=== PATIENT | female | born 1970 | race Caucasian/White ===

== ENCOUNTER 2019-08-23 16:50 | Emergency (ER) | payer MEDICAID, SELFPAY ==
--- NOTE | ~2019-08-23 | XR_ITS ---
EXAMINATION: XR chest 2V DATE: 08/23/2019 17:21 INDICATION: Chest pain. TECHNIQUE: Frontal and lateral views of the chest were obtained. COMPARISON: CT abdomen and pelvis 12/12/2013 FINDINGS: The chest demonstrates clear lungs without pneumonia, pleural effusion, or pneumothorax. Th e heart size is normal. IMPRESSION: 1. No acute cardiopulmonary disease. Reviewed, dictated and finalized at location A.
--- NOTE | ~2019-08-23 | CT_ITS ---
EXAMINATION: CT brain wo con DATE: 08/23/2019 17:17 INDICATION: Dizziness TECHNIQUE: Computed tomography (CT) of the head was performed without intravenous contrast. The mA wa s adjusted according to patient size. Iterative reconstruction technique was employed. Exam dose: 68 1.00 mGy-cm total exam DLP. COMPARISON: None FINDINGS: No intracranial mass lesion or hemorrhage or cerebrovascular accident. No midline shift or mass effect. Normal ventricular size. No subdural or epidural hematoma. No fracture or bone destr uction. IMPRESSION: Negative Reviewed, dictated and finalized at Location A. Reviewed, dictated and finalized at location A. IMPRESSION: Negative
--- NOTE | 2019-08-23 16:56 | ECG_ITS ---
Measurements Intervals [place] Rate: 87 P: 58 ID: [id number] QRS: 6 QRSD: 77 T: 33 QT: 337 QTc: 406 Interpretive Statements SINUS RHYTHM BASELINE ARTIFACT- I, III NORMAL ECG Electronically Signed On 08-23-2019 20:18:53 CDT by Viet Wallace D.O.
[2019-08-23 17:08] VITALS: BP 125/83; PULSE 117; RESP 18; TEMP 36.6; O2SAT 97
[2019-08-23 17:27] LABS: Basophils Percent Auto 0.3 % (0.2-1.2); Eosinophils Absolute Auto 0.3 K/mm3 (0-0.3); Eosinophils Percent Auto 2.7 % (0-4.4); Hematocrit 42.4 % (37.0-47.0); Hemoglobin 14.1 g/dL (12.0-15.0); Immature Granulocyte Absolute 0.04 K/mm3 (0.00-0.031); Immature Granulocyte Percent A 0.4 % (0-0.5); Lymphocytes Absolute Auto 3.87 K/mm3 (0.9-3.2); Lymphocytes Percent Auto 36.1 % (18.3-44.2); Mean Corpuscular HGB Conc 33.3 g/dl (32-36); Mean Corpuscular Hemoglobin 30.5 pg (26-34); Mean Corpuscular Volume 91.8 fl (80-100); Mean Platelet Volume 10.3 fl (7.4-10.4); Monocytes Absolute Auto 0.6 K/mm3 (0.1-0.6); Monocytes Percent Auto 5.7 % (2.6-8.5); Neutrophils Absolute Auto 5.9 K/mm3 (1.3-6.7); Neutrophils Percent Auto 54.8 % (45.5-73.1); Platelet Count Result 460 k/mm3 (150-375); Red Blood Count 4.62 M/mm3 (4.2-5.4); Red Cell Distribution Width 12.9 % (11.5-14.5); White Blood Count 10.7 K/mm3 (4.5-10.0)
[2019-08-23 17:37] LABS: INR 0.9; Partial Thromboplastin Time 29.5 SECONDS (22.3-36.8); Prothrombin Time 11.8 Seconds (11.1-14.7)
[2019-08-23 17:39] LABS: Blood Urea Nitrogen 14 mg/dL (7-17); Calcium 9.3 mg/dL (8.4-10.2); Carbon Dioxide 23 mmol/L (22-30); Chloride 107 mmol/L (98-107); Estimated CRCL calculation 106 ml/min; Estimated Glomerular Filt Rate > 60; Glucose 101 mg/dL (65-105); Potassium 4.1 mmol/L (3.4-5.0); Sodium 135 mmol/L (137-145)
[2019-08-23 17:51] LABS: Troponin I < 0.012 ng/mL (0.000-0.034)
--- NOTE | 2019-08-23 20:27 | PC.NURSE ---
patient reported to this nruse that she was leaving ed.
== END 2019-08-23 20:27 | disposition left against medical advice (07) ==
PROVIDERS: Emergency Provider Emergency Medicine
DX: R42 Dizziness and giddiness (principal); R07.9 Chest pain, unspecified
CPT/HCPCS: 36415; 70450; 71046; 80048; 84484; 85025; 85610; 85730; 93005; 99199

== ENCOUNTER 2020-01-25 17:01 | Outpatient (CLI) | payer OTHER, SELFPAY ==
--- NOTE | ~2020-01-25 | XR_ITS ---
EXAMINATION: XR forearm LT 2V EXAM DATE: 01/25/2020 17:30 INDICATION: Pain in Left arm, proximal forearm pain, no acute injury. TECHNIQUE: Left forearm frontal and lateral projections obtained and reviewed. There is no prior yolande dy for comparison. FINDINGS: There are no acute left forearm fractures or dislocations identified. There is no subcutan eous gas. The soft tissue is unremarkable. There are no radiopaque foreign bodies. IMPRESSION: 1. Unremarkable left forearm exam. Reviewed, dictated and finalized at location A. E UNLOADER
[2020-01-25 18:12] LABS: Cholesterol 226 mg/dL (0-200); HDL Direct 59 mg/dL; Triglycerides 163 mg/dL (<150)
[2020-01-25 18:23] LABS: LDL Cholesterol Direct 133 mg/dL
== END 2020-01-25 17:02 | disposition home or self-care (01) ==
PROVIDERS: PCP Nurse Practitioner Family; Visit Provider Nurse Practitioner Family
DX: M79.602 Pain in left arm (principal); E78.5 Hyperlipidemia, unspecified
CPT/HCPCS: 36415; 73090; 80061

== ENCOUNTER 2020-02-03 09:00 | Outpatient (RCR) | payer OTHER, SELFPAY ==
[2019-12-08 08:16] VITALS: BP_SYST 180
--- NOTE | 2019-12-08 09:10 | PTOPEVAL ---
Thank you for referring Carine Garnica to [facility].? The patient is scheduled to be seen for therapy? 2 x/week for 8 weeks. Please review, sign, date and return this plan of care NATE. I agree with and certify that the following plan of care is medically necessary. Referring Physician Date Referring Provider: Dr. Conrad Ford MD *PT Outpatient Evaluation Start: 12/08/19 08:14 Freq: Status: Active Protocol: Document 12/08/19 08:16 DUGLAS (Rec: 12/08/19 09:00 DUGLAS [id number]) Therapy Assessment Status Assessment Status Assessment Status Evaluation Outpatient Past Medical History Past Medical History Source of Past Medical History Patient,Recalled from Previous Visit, Confirmed with Patient /Family Other Source of Past Medical History poor historian for her medical history Neurological History Hx Neurological Disorders No Significant History Cardiovascular History Hx Hypercholesterolemia Yes Respiratory History Hx Asthma Yes Musculoskeletal History Hx Other Musculoskeletal Disorders Yes: broderick hand numbness Endocrine History Hx Other Endocrine Disorders Yes: hypoglycemia Evaluation Information Problem Diagnosis left shoulder pain Onset 1 month Additional Evaluation Detail She fell when she was 29 and was seen by a chiropractor, but then had broderick hand numbness. She has received therapy for right shoulder a few years ago due to RTC. tear. 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 She has to Family perform lifting and carrying at work. She reports increased pain and difficulty with lifting, reaching task, reaching and ADL's. She has trouble sleeping due to the pain. She does not have time due to work to perform any exercises. Reports increased pain with any movement of left shoulder. She reports numbness and tingling from shoulder into hand region that remains the same regardless of activity. Pain Assessment Timing of Pain Assessment Timing of Pain Assessment Assessment Pain Scale Pain Scale Used Numeric (1 - 10) Self Report Pain Assessment
--- NOTE | 2019-12-23 09:18 | PCPTNOTE ---
Patient called & cancelled scheduled appointment this date due to having to work.
--- NOTE | 2020-02-03 09:19 | PTOPEVAL ---
Thank you for referring Carine Garnica to [facility].? Pt has been seen for 9 therapy visits to address UE limitations. She has reached maximal potential with skilled therapy services at this time. Will DC Carine for skilled therapy at this time with pt to cont with her HEP. Please review, sign, date and return this plan of care NATE. I agree with and certify that the following plan of care is medically necessary. Referring Physician Date Admitting Provider: Attending Provider: PHYSICIAN NOT ON STAFF Referring Provider: *PT Outpatient Evaluation Start: 12/08/19 08:14 Freq: Status: Active Protocol: Document 02/03/20 08:43 DUGLAS (Rec: 02/03/20 09:16 CAP [id number]) Therapy Assessment Status Assessment Status Assessment Status Re-evaluation/Discharge Note Evaluation Information Problem Diagnosis left shoulder pain Onset 1 month Additional Evaluation Detail She fell when she was 29 and was seen by a chiropractor, but then had broderick hand numbness. She has received therapy for right shoulder a few years ago due to RTC. tear. Subjective Information She reports improved UE Query Text:As Reported By Patient/ symptoms with decreased Family shoulder pain. She is delegating some of the heavier chores at work to decrease the stress on the UE's. She is more aware of her technique with lifting and carrying with improved symptoms. She has changed her technique with forceful UE act at work with improved pain. She cont to have trouble sleeping due to the pain. She had increased pain of 10/10 when attempting to sleep. During a normal work week her pain will range from 0/10 to 7 /10. She is performing her HEP daily. She c/o have numbness and tingling into hand region that remains the same regardless of activity. Denies feeling in the last 2 fingers of both hands that has been present for years. Pain Assessment Timing of
== END 2020-02-03 09:56 | disposition home or self-care (01) ==
LOC: ANHPT 09:00
DX: M25.512 Pain in left shoulder (principal)
CPT/HCPCS: 97035; 97110; 97140; 97162

== ENCOUNTER 2020-03-20 00:49 | Emergency (ER) | payer OTHER, SELFPAY ==
--- NOTE | ~2020-03-20 | XR_ITS ---
EXAMINATION: XR elbow RT min 3V DATE: 03/20/2020 01:53 INDICATION: Right elbow pain. TECHNIQUE: 4 views of right elbow were obtained. COMPARISON: None. FINDINGS: Bone alignment is normal. No fracture. There is mild elbow joint osteoarthritis characteriz ed by tiny marginal osteophytes. No elbow joint effusion. There is mild soft tissue swelling overlyin g the olecranon. IMPRESSION: 1. Mild right elbow joint osteoarthritis. Reviewed, dictated and finalized at location A. ATTENDANT
[2020-03-20 00:50] VITALS: BP 123/91; PULSE 84; RESP 18; TEMP 36; O2SAT 100
[2020-03-20 02:02] VITALS: BP 119/78; PULSE 80; RESP 18; O2SAT 100
--- NOTE | 2020-03-20 02:02 | ED.UPPEXIN ---
HPI - Extremity Injury (Upper) General Chief Complaint: Extremity Injury, Upper Stated Complaint: right elbow pain Time Seen by Provider: 03/20/20 01:03 History of Present Illness HPI narrative: Patient is a 50-year-old female who presents ER with right elbow pain. Was using the rocker pizza cutter at [facility] when she had sudden onset pain in her right elbow with a pop. Seems to be over her radial head. It is worsened with repeated motion throughout the day. No numbness or tingling. Most comfortable when holding her hand across her chest. Related Data Home Medications Medication Instructions Recorded Confirmed ergocalciferol (vitamin D2) 03/20/20 03/20/20 loratadine mg 03/20/20 montelukast mg 03/20/20 simvastatin mg 03/20/20 Allergies Allergy/AdvReac Type Severity Reaction Status Date / Time No Known Allergies Allergy Verified 03/20/20 00:56 Review of Systems Musculoskeletal: Musculoskeletal: Reports arthralgias, Denies joint swelling and Denies muscle cramps Neurologic: Denies focal weakness and Denies numbness PMFSH Past Medical History Medical History (Updated 03/20/20 @ 02:05 by Kiel Fuentes MD) Healthy female adult Surgical History Surgical History (Updated 03/20/20 @ 02:03 by Kiel Fuentes MD) No history of previous surgery Social History Social History (Updated 03/20/20 @ 02:03 by Kiel Fuentes MD) Smoking status: Never smoker Gender identity (if verbalized by the patient): Female Exam Narrative: Exam Narrative: GENERAL: Well-appearing, well-nourished, and in no acute distress. HEAD: Normocephalic, atraumatic. HEART: Regular rate and rhythm. Normal peripheral pulses. EXTREMITIES: Normal range of motion. Tender palpation of the right radial head. Pronation supination intact. No swelling. SKIN: Warm, dry, no rash. NEURO: Alert and oriented x3. PSYCH: Normal mood and affect. Course Course Emergency Course: Unremarkable x-ray. Discharge home with sling for comfort. Continue take Tylenol and ibuprofen as needed for pain. Vital Signs Vital signs: Vital Signs Temperature 96.8 F L 03/20/20 00:50 Pulse Rate 84 03/20/20 00:50 Respiratory Rate 18 02/08/21 00:50 Blood Pressure 123/91 H 03/20/20 00:50 Pulse Oximetry 100 03/20/20 00:50 Temperature 96.8 F L 03/20/20 00:50 Pulse Rate 84 03/20/20 00:50 Respiratory Rate 18 03/20/20 00:50 Blood Pressure 123/91 H 03/20/20 00:50 Pulse Oximetry 100 03/20/20 00:50 MDM - Extremity Injury (Upper) Imaging Data My impression: X-ray right elbow: Negative for acute process. Discharge Plan Discharge Clinical Impression: Radial head subluxation Patient Disposition: Home, Self-Care Condition: Stable Instructions: How to Use a Sling (ED), Elbow Sprain (ED) Additional Instructions: Return to the ER if you suffer new injury, you have chest pain or shortness of breath, you have a cold/numb arm, you have additional concerns. Use your sling for comfort. Make sure to take your arm out at least 3 times a day and perform range of motion exercises of the elbow and shoulder see do not become increasingly stiff. Prescriptions: No Action simvastatin 20 mg tablet RF: 0 montelukast 10 mg tablet RF: 0 ergocalciferol (vitamin D2) 1,250 mcg (50,000 unit) capsule RF: 0 loratadine 10 mg tablet RF: 0 Follow-up/Referrals: Sita,Maria E Hernandez CLINICAL SYSTEMS EDUCATOR-BC [Primary Care Provider] - 1 Week
[2020-03-20 02:19] VITALS: BP 116/89; PULSE 79; RESP 16; O2SAT 99
== END 2020-03-20 02:23 | disposition home or self-care (01) ==
PROVIDERS: Emergency Provider Emergency Medicine; PCP Nurse Practitioner Family
DX: S53.001A Unspecified subluxation of right radial head, initial encounter (principal); X50.9XXA Other and unspecified overexertion or strenuous movements or postures, initial encounter
CPT/HCPCS: 73080; 99283; A4565

== ENCOUNTER 2020-03-27 08:46 | Outpatient (CLI) | payer OTHER, SELFPAY ==
--- NOTE | ~2020-03-27 | MR_ITS ---
EXAMINATION: MR shoulder LT wo con DATE: 03/27/2020 10:19 INDICATION: Left shoulder pain TECHNIQUE: Magnetic resonance imaging (MRI) of the left shoulder was performed without intravenous co ntrast. Sequences included axial PD-weighted FS FSE, coronal oblique PD-weighted FS FSE, coronal obli que T2-weighted FS FSE, sagittal PD-weighted FS FSE, and sagittal T1-weighted SE. COMPARISON: None. FINDINGS: Coracoacromial arch: The acromion undersurface is curved in morphology (type II). The coracoacromial ligament is normal. M inimal acromioclavicular osteoarthritis. Rotator cuff: Mild to moderate supraspinatus and infraspinatus tendinopathy. Full-thickness tear beginning approxim ately 1 cm from the footplate and extending 1 cm medial collateral and 6 mm AP. There is a partial-th ickness articular sided component which extends further distally to the footplate. There is also an a dditional 2 cm medial extension of a partial-thickness bursal sided component. The teres minor tendon is normal. Minimal subscapularis tendinopathy without discrete tear. Normal rotator cuff muscle bulk and signal. Biceps tendon, glenoid labrum and glenohumeral cartilage: Long head of the biceps tendon is normal. Is a tear at the superior glenoid labrum which extends from the 12:30 position anteriorly to the 11:00 position posteriorly. There is partial thickness cartilag e loss without degenerative subchondral changes along the anterior third of the glenoid and at the ap ex of the humeral head. Fluid: Small glenohumeral joint effusion which communicates with a small amount of fluid in the subacromial/ subdeltoid bursa to the full-thickness rotator cuff tear. Proportional extension of a small amount of fluid into the long head biceps tendon sheath. No loose osteochondral bodies. Bones: Normal marrow signal with no edema, fracture or abnormal marrow replacing process. Mild cystic change at the middle facet of the greater tuberosity likely related to chronic rotator cuff disease. IMPRESSION: 1. Mild to moderate supraspinatus and infraspinatus tendinopathy with small full-thickness supraspina tus tendon tear. 2. Mild glenohumeral osteoarthritis with superior, anterior to posterior tear of the glenoid labrum ( SLAP tear). Reviewed, dictated and finalized at location A. T ATTENDANT IMPRESSION: 1. Mild to moderate supraspinatus and infraspinatus tendinopathy with small ful l-thickness supraspinatus tendon tear. 2. Mild glenohumeral osteoarthritis with superior, anterior to posterior tear o f the glenoid labrum (SLAP tear).
== END 2020-03-27 08:47 | disposition home or self-care (01) ==
PROVIDERS: PCP Nurse Practitioner Family; Visit Provider Orthopaedic Surgery Hand Surgery
DX: M19.012 Primary osteoarthritis, left shoulder (principal)
CPT/HCPCS: 73221

== ENCOUNTER 2021-02-12 11:24 | Emergency (ER) | payer OTHER, SELFPAY ==
[2021-02-12 12:20] VITALS: BP 108/74; PULSE 86; RESP 18; TEMP 36.9; O2SAT 99
--- NOTE | 2021-02-12 13:35 | ED.NAVMDI ---
HPI - Nausea/Vomiting/Diarrhea General Chief complaint: Nausea/Vomiting/Diarrhea Stated complaint: low energy,diarrhea Time Seen by Provider: 02/12/21 13:24 Source: patient and RN notes reviewed Mode of arrival: ambulatory Limitations: no limitations History of Present Illness HPI Narrative: Patient presents today complaining of watery diarrhea, headache, nausea, and fever of 102 since last night. Patient reports multiple episodes of diarrhea that she cannot count. She has been able to keep down some water. Denies any upper respiratory symptoms. She has been taking ibuprofen for her fever with relief. Denies suspicious food intake. Denies abdominal pain. No one else in her household is sick. MD elicited complaint: nausea and diarrhea Related Data Home Medications Medication Instructions Recorded Confirmed ergocalciferol (vitamin D2) 1,250 mcg WEEKLY 02/12/21 02/12/21 [Vitamin D2] simvastatin 20 mg DAILY 02/12/21 02/12/21 topiramate [Topamax] 50 mg BID 02/12/21 02/12/21 Allergies Allergy/AdvReac Type Severity Reaction Status Date / Time No Known Allergies Allergy Verified 02/12/21 13:11 Review of Systems Review of Systems: CONSTITUTIONAL: Denies chills, or sweats.+ Fever, body aches EYES: Denies visual changes, redness, or discharge. ENT: Denies rhinorrhea, congestion, sore throat, or otalgia. CARDIOVASCULAR: Denies chest pain, palpitations, or edema. RESPIRATORY: Denies cough or dyspnea. GASTROINTESTINAL: Denies abdominal pain, vomiting. + Nausea, diarrhea GENITOURINARY: Denies dysuria or hematuria. SKIN: Denies rash, itching, or wounds. MUSCULOSKELETAL: Denies back pain, joint pain, or myalgia. NEUROLOGIC: Denies numbness, tingling, or weakness.+ Headache PSYCH: Denies depression or anxiety. [facility] Past Medical History Medical History Healthy female adult Surgical History Surgical History No history of previous surgery Social History Social History Smoking status: Never smoker Gender identity (if verbalized by the patient): Female Comments At time of signature, I have reviewed and agree with nursing past medical, surgical, social and family history unless otherwise noted. Please see nursing chart for further information. There is no relevant family history pertinent to the presenting complaint Exam Narrative: GENERAL: Well-appearing, well-nourished, and in no acute distress. HEAD: Normocephalic, atraumatic. EYES: EOMI. No redness or drainage. Conjunctivae normal. ENT: Mucous membranes pink and moist. Throat normal. Uvula midline. NECK: Normal AROM. Supple. No lymphadenopathy. CHEST: No respiratory distress. Clear to auscultation. HEART: Regular rate and rhythm. No murmur appreciated. Normal peripheral pulses. ABDOMEN: Soft, nontender, nondistended, hyper active bowel sounds. MUSCULOSKELETAL: No bony tenderness. EXTREMITIES: Normal range of motion. No edema. SKIN: Warm, dry, no rash. Capillary refill normal. Normal skin turgor. NEURO: No focal deficits. Alert and oriented x3. Gait steady. PSYCH: Normal affect. No signs of depression or anxiety. Course Course Level of Care: Express Care Visit Vital Signs Vital signs: Vital Signs Temperature 98.4 F 02/12/21 12:20 Pulse Rate 86 02/12/21 12:20 Respiratory Rate 18 02/12/21 12:20 Blood Pressure 108/74 02/12/21 12:20 Pulse Oximetry 99 02/12/21 12:20 Temperature 98.4 F 02/12/21 12:20 Pulse Rate 86 02/12/21 12:20 Respiratory Rate 18 02/12/21 12:20 Blood Pressure 108/74 02/12/21 12:20 Pulse Oximetry 99 02/12/21 12:20 Reviewed MDM - Nausea/Vomiting/Diarrhea Differential Diagnosis Differential diagnosis: Likely food poisoning, gastroenteritis and dehydration Lab Data Attestation: I reviewed the patient's lab results
== END 2021-02-12 13:50 | disposition home or self-care (01) ==
PROVIDERS: Emergency Provider Nurse Practitioner; PCP Nurse Practitioner Family
DX: R19.7 Diarrhea, unspecified (principal); Z20.822 Contact with and (suspected) exposure to COVID-19
CPT/HCPCS: 87804; 99213; G0463

== ENCOUNTER → 2021-02-14 07:54 | Outpatient (CLI) | payer OTHER, SELFPAY ==
[2021-02-15 14:36] LABS: SARS-CoV-2 RNA PCR Positive
== END ==
PROVIDERS: PCP Nurse Practitioner Family; Visit Provider Nurse Practitioner
DX: U07.1 COVID-19 (principal)
CPT/HCPCS: C9803; U0003; U0005

== ENCOUNTER 2023-01-31 14:10 | Emergency (ER) | payer OTHER, SELFPAY ==
[2023-01-31 15:17] VITALS: BP 110/81; PULSE 76; RESP 18; TEMP 36.4; O2SAT 100
--- NOTE | 2023-01-31 15:31 | ED.URI ---
HPI - URI/Sore Throat General Chief Complaint: Upper Respiratory Infection Stated Complaint: covid symptoms Time Seen by Provider: 01/31/23 15:25 Source: patient Mode of arrival: ambulatory Limitations: no limitations History of Present Illness HPI Narrative: Marcella is a 53-year-old female patient presenting to the clinic today with complaints of cough and runny nose. She reports that her symptoms have improved greatly. Symptoms started mid day on Friday. Has completed COVID test every day and they have all been positive. Reports that her employer recommend she come in to be evaluated. MD elicited complaint: cough and nasal congestion Related Data Home Medications Medication Instructions Recorded Confirmed ergocalciferol (vitamin D2) 1,250 1,250 mcg WEEKLY 02/12/21 01/31/23 mcg (50,000 unit) capsule (Vitamin D2) simvastatin 20 mg tablet 20 mg DAILY 02/12/21 01/31/23 topiramate 50 mg tablet (Topamax) 50 mg PRN PRN migraines 02/12/21 01/31/23 loratadine 10 mg tablet 10 mg PO DAILY 12/18/21 01/31/23 montelukast 10 mg tablet 10 mg PO DAILY 12/18/21 01/31/23 omeprazole 20 mg capsule,delayed 20 mg PO DAILY 12/18/21 01/31/23 release vitamin B complex (B 1 tablet PO DAILY 12/18/21 01/31/23 Complex-Vitamin B12 tablet) Allergies Allergy/AdvReac Type Severity Reaction Status Date / Time No Known Allergies Allergy Verified 01/31/23 15:44 Review of Systems Review of Systems: Pertinent positives per HPI. Patient denies any fever, chills, rash, headache, visual changes, dizziness, shortness of breath, chest pain, palpitations, nausea, vomiting, diarrhea, constipation, abdominal pain, or any urinary issues. [facility] Past Medical History Medical History Healthy female adult Surgical History Surgical History No history of previous surgery Family History Family History Father Alcoholism Skin cancer Heart disease Sibling Cancer Social History Social History Smoking status: Current every day smoker Tobacco type: cigarettes Alcohol intake: never Substance use: never Gender identity (if verbalized by the patient): Female Comments At the time of my signature, I reviewed and agree with the nursing past medical, surgical, social, and family history. There is no relevant family history pertinent to the patient complaint. Exam Narrative: General: Well-developed, obese in no apparent distress Head: Normocephalic, atraumatic Eyes: Pupils equally round and reactive to light bilaterally, EOM intact, sclera and conjunctive clear, no discharge, lids normal Ears: TMs intact and clear, ear canals clear, no drainage, grossly hearing normal. Nose: Nares patent, clear discharge, no inflammation, no sinus tenderness. Mouth: Oral pharynx without lesions or masses, good dentition, MMM. Neck: Supple, trachea midline, no enlargement of anterior or posterior cervical nodes, no thyroid masses or goiter palpable. Cardio: Regular rate and rhythm, s1 and s2 normal, no murmur appreciated. Resp: Clear to auscultation bilaterally, no rhonchi, rales, wheezing or rubs Course Course Emergency Course: Portions of this record may have been created with voice recognition software. Level of Care: Express Care Visit Vital Signs Vital signs: Vital Signs Temperature 36.4 C 01/31/23 15:17 Pulse Rate 76 01/31/23 15:17 Respiratory Rate 18 01/31/23 15:17 Blood Pressure 110/81 01/31/23 15:17 Pulse Oximetry 100 01/31/23 15:17 Oxygen Delivery Room Air 01/31/23 15:17 Temperature 36.4 C 01/31/23 15:17 Pulse Rate 76 01/31/23 15:17 Respiratory Rate 18 01/31/23 15:17 Blood Pressure 110/81 01/31/23 15:17 Pulse Oximetry 100 01/31/23 15:17 Oxygen Deliver
== END 2023-01-31 15:41 | disposition home or self-care (01) ==
PROVIDERS: Emergency Provider Nurse Practitioner Family; PCP Nurse Practitioner Family
DX: U07.1 COVID-19 (principal); F17.210 Nicotine dependence, cigarettes, uncomplicated
CPT/HCPCS: 99211; G0463

== ENCOUNTER 2024-09-14 10:29 | Emergency (ER) | payer SELFPAY ==
--- NOTE | ~2024-09-14 | XR_ITS ---
XR abdomen/kub 1V 09/14/2024 11:15 INDICATION: Left upper quadrant pain TECHNIQUE: KUB COMPARISON: None FINDINGS: Bowel gas pattern is normal. There is no evidence of free air, mass, organomegaly, ascites or obstruction. No abnormal calculi are seen. The bones appear intact. IMPRESSION: 1: No acute abdominal abnormality identified. Reviewed, dictated and finalized at location A.
[2024-09-14 10:45] VITALS: BP 129/74; PULSE 82; RESP 16; TEMP 36.1; O2SAT 100
--- NOTE | 2024-09-14 10:58 | ED_ITS ---
HPI - General Adult General Chief complaint: Abdominal Pain Stated complaint: LT Side Pain Time Seen by Provider: 09/14/24 10:59 Source: patient Mode of arrival: ambulatory Limitations: no limitations History of Present Illness HPI narrative: 54-year-old male presents with concern for left upper quadrant and side pain. Reports several day history of discomfort. Reports she has pain with certain movements, standing from a sitting position. She reports she can find positions of comfort. She denies fever, body aches, chills, sweats. She denies dysuria, frequency, urgency. She reports her bowel movements are decreased, she usually has 3 bowel movements a day and is now only having 1. Reports that consistency is unchanged. Reports that has been going on for about a week. She reports history of kidney stones. MD complaint: Left upper quadrant pain Related Data Home Medications ?Medication ?Instructions ?Recorded ?Confirmed ?Last Taken ?Type loratadine 10 mg tablet (Claritin) 10 mg PO DAILY 12/04/23 05/21/24 Unknown History Allergies Allergy/AdvReac Type Severity Reaction Status Date / Time tramadol AdvReac Mild unknown Uncoded 09/14/24 10:56 Review of Systems Review of Systems: CONSTITUTIONAL: Denies malaise, chills, sweats, or fever. GASTROINTESTINAL: Reports left upper quadrant intermittent abdominal pain. Denies nausea, vomiting, diarrhea, bloody, or mucous stools. GENITOURINARY: Denies dysuria, frequency, urgency, or hematuria. SKIN: Denies rash or itching. MUSCULOSKELETAL: Denies back pain, flank pain, myalgia. All systems reviewed & are unremarkable except as noted in HPI and below PMFSH Past Medical History Medical History (Updated 09/14/24 @ 11:51 by Sharita Choudhary NP) Asthma Healthy female adult Surgical History Surgical History (Updated 12/04/23 @ 09:22 by Jacqueline Hurst) H/O rotator cuff surgery No history of previous surgery Family History Family History (Updated 12/04/23 @ 09:12 by Jacqueline Hurst) Father Alcoholism Skin cancer Heart disease Hypertension Sibling Cancer Grandparent Cancer Heart disease Social History Social History (Updated 05/21/24 @ 13:05 by Meng Garcia) Social History: 05/21/24 very confident with medical forms Smoking status: Current every day smoker Tobacco type: cigarettes Alcohol intake: never Substance use: never Do You Feel Safe in your Home?: Yes Lack of Transportation: No Current Housing: I Have Housing Concerned About Future Housing: No Difficulty Paying Gas/Electric Bills: No Difficulty Paying for Meds: No Currently Unemployed: No Education: High School Diploma/GED Difficulty w/ Childcare or Family Care: No Gender identity (if verbalized by the patient): Female Sexual Orientation (if Verbalized by the Patient): Straight or Heterosexual Spiritual care concerns: No Agree to blood products: Yes Comments At time of signature, agree with nursing past medical, surgical, social and family history. There is no relevant family history pertinent to the presenting complaint Exam Narrative: GENERAL: Well-appearing, well-nourished, and in no acute distress. HEAD: Normocephalic, atraumatic. EYES: PERRLA, sclera clear, and EOMI. No nystagmus. ENT: Nares clear. Mucous membranes moist. NECK: Supple CHEST: No respiratory distress. Speaks in full sentences. HEART: Regular rate and rhythm. ABDOMEN: Soft, left upper quadrant tenderness, nondistended, normal active bowel sounds, no palpable masses. EXTREMITIES: Normal range of motion. SKIN: Warm, dry, no visible rash. NEURO: Alert and oriented x3. PSYCH: Normal mood and affect Course Course Emergency Course: Patient is aware of diagnosis, understands and agrees to treatment plan. Anticipatory guidance given. Patient agrees to follow-up as directed and is aware of reasons to seek care at the emergency department. Portions of this record may have been created with voice recognition software Level of Care: Express Care Visit Vital Signs Vital signs: Vital Signs Temperature 96.9 F L 09/14/24 10:45 Pulse Rate 82 09/14/24 10:45 Respiratory Rate 16 09/14/24 10:45 Blood Pressure 129/74 09/14/24 10:45 Pulse Oximetry 100 09/14/24 10:45 Temperature 96.9 F L 09/14/24 10:45 Pulse Rate 82 09/14/24 10:45 Respiratory Rate 16 09/14/24 10:45 Blood Pressure 129/74 09/14/24 10:45 Pulse Oximetry 100 09/14/24 10:45 Reviewed. Medical Decision Making MDM Narrative Medical decision making narrative: The patient was evaluated by myself in the express care. History is obtained from patient who is an independent historian and physical exam was performed.? Available medical records were reviewed at this time. ? Exam findings show no acute concerns or changes; patient is non-toxic appearing and is in no distress. Patient is appropriate for outpatient treatment and follow-up. ? I have evaluated and discussed social determinants of health with the patient that could potentially impact subsequent diagnosis and treatment plans. Patient's KUB is normal, does not demonstrate constipation or blockage. No calcifications noted. Patient's urine shows 2+ leukocyte. Will treat for presumptive urinary tract infection pending culture. Patient was advised to follow-up with her primary care doctor and to go to the emergency room for symptoms change or worsen. ? Differential diagnosis and treatment plan were discussed with the patient. Patient agrees with discussion and after shared medical decision making agrees with plan of care. All questions were answered to the patient's satisfaction. Vital Signs Vital Signs: Vital Signs Temperature 96.9 F L 09/14/24 10:45 Pulse Rate 82 09/14/24 10:45 Respiratory Rate 16 09/14/24 10:45 Blood Pressure 129/74 09/14/24 10:45 Pulse Oximetry 100 09/14/24 10:45 Temperature 96.9 F L 09/14/24 10:45 Pulse Rate 82 09/14/24 10:45 Respiratory Rate 16 09/14/24 10:45 Blood Pressure 129/74 09/14/24 10:45 Pulse Oximetry 100 09/14/24 10:45 Critical Care Time Critical Care Time Critical Care Time: No Discharge Plan Discharge Clinical Impression: Pyuria, Abdominal pain, LUQ Patient Disposition: Home Condition: Stable Instructions: Antibiotic Form, Urinary Tract Infection in Women (ED) Additional Instructions: 1) Please follow-up with your primary care doctor in the next 1-2 days. 2) If you have any worsening of symptoms or any other urgent concerns please go to the ER. 3) Please take medications as prescribed and continue taking your home medications as usual. 4) Please read and follow information included in discharge instructions. Patient Language: Tamazight Prescriptions: New ciprofloxacin HCl 500 mg tablet 500 mg PO Q12H 7 Days Qty: 14 0RF No Action loratadine [Claritin] 10 mg tablet 10 mg PO DAILY meloxicam 15 mg tablet 15 mg PO DAILY Qty: 90 1RF Follow-up/Referrals: Maria E Buckner APRN [Primary Care Provider] - Stand Alone Forms: Work/School Release IP Time of Disposition: 11:52
[2024-09-14 11:53] LABS: EDUAAPPEAR Clear; EDUABILI Negative (Negative); EDUABLOOD Trace (Negative); EDUACOLOR1 Yellow; EDUAGLUCOSE Negative (Negative); EDUAKETONE Negative (Negative); EDUALEUKO 2+ (Negative); EDUANITRATE Negative (Negative); EDUAPH 6.0; EDUAPROTEIN Negative (Negative); EDUASPGRAVITY 1.010; EDUAUROBILI 0.2
== END 2024-09-14 11:54 | disposition home or self-care (01) ==
PROVIDERS: Emergency Provider Nurse Practitioner; PCP Nurse Practitioner Family
DX: R82.81 Pyuria (principal); R10.12 Left upper quadrant pain; F17.210 Nicotine dependence, cigarettes, uncomplicated; J45.909 Unspecified asthma, uncomplicated; Z87.442 Personal history of urinary calculi
CPT/HCPCS: 74018; 81003; 87086; 99213; G0463

== ENCOUNTER 2024-09-15 19:16 | Emergency (ER) | payer SELFPAY ==
--- NOTE | ~2024-09-15 | CT_ITS ---
CLINICAL INDICATION: Left upper quadrant pain COMPARISON: 12/12/2013. TECHNIQUE: Multiple contiguous axial images of the abdomen and pelvis were performed following the ad ministration of with 100 mL Omnipaque-350 intravenous contrast The dose-length product (DLP) was 830.71 mGy-cm. Automated exposure control and iterative reconstruction technique were employed. FINDINGS/OBSERVATIONS: Visualized lower thorax: The bilateral lung bases are clear. The heart is of normal size, without pericardial effusion. Small hiatal hernia is present. Liver: The liver demonstrates homogeneous enhancement and is not enlarged. Gallbladder and biliary system: The gallbladder is only minimally distended, and otherwise unremarkable. Pancreas: The pancreas enhances homogeneously without ductal dilatation. Spleen: The spleen enhances homogeneously and is not enlarged measuring 8 cm in longitudinal dimension. Kidneys: The bilateral kidneys enhance symmetrically without hydronephrosis or renal calculi. Adrenal glands: Unremarkable. Gastrointestinal tract: Colonic diverticulosis without surrounding inflammatory change. Appendix: The air-filled appendix is of normal caliber (axial series, images 116 - 128). Vasculature: Calcified atherosclerotic disease, within the infrarenal abdominal aorta far advanced than one would expect for a patient of this age Lymph nodes: No pathologically enlarged or morphologically suspicious lymph nodes within the retroperitoneum or at the root of the mesentery. Pelvic structures: The bladder is distended, and otherwise unremarkable. The uterus is anteverted and anteflexed. Body wall and musculoskeletal: Small fat-containing umbilical hernia. At the level of L1/L2, is a left paracentral disc protrusion with mass effect on the spinal canal and left neural foramen. No additional significant disc disease is appreciated. IMPRESSION: No acute pathology within the abdomen or pelvis, as detailed above. Calcified atherosclerotic disease within the infrarenal abdominal aorta, far advanced than one would expect for a patient of this age. Left paracentral disc protrusion at the level of L1/L2 with mass effect on the spinal canal and left neural foramen. Reviewed, dictated and finalized at location A. IMPRESSION: No acute pathology within the abdomen or pelvis, as detailed above. Calcified atherosclerotic disease within the infrarenal abdominal aorta, far ad vanced than one would expect for a patient of this age. Left paracentral disc protrusion at the level of L1/L2 with mass effect on the spinal canal and left neural foramen.
--- OUTSIDE RECORDS SUMMARY | 2024-09-15 19:18 | XMS_ITS | Clinical Summary ---
Author Organization [facility] Address [facility] [place] [address] Care Team Providers Care Kilnman Name Role Phone Unavailable Primary Care Provider Unavailabl e Social History Tobacco Use Types Packs/Day Years Used Date Smoking Tobacco: Never Assessed Comments Unknown Sex and Gender Information Value Date Recorded Sex Assigned at Not on file Legal Sex Female 8:10 PM CDT Gender Identity Not on file Sexual Orientation Not on file Plan of Treatment Health Maintenance Due Date Last Done Comments Cervical Cancer Screening Pa p Smear (Age 30 to 64) Every 3 Years 1971 Colorectal Cancer Screening Colonoscopy (10 Years) 1971 Annual Physical 1974 Hepatitis C 1989 DTaP, Tdap and Td Vaccines ( 1 - Tdap) 1990 Hepatitis B Vaccines (1 of 3 - 19+ 3-dose series) 1990 Cervical Cancer Screening Pa p with HPV Testing (Age 30 to 64) Every 5 Years 2001 Cervical Cancer Screening with HPV 2001 Mammogram Screening 2011 Pneumococcal Vaccine: 50+ Ye ars (1 of 1 - PCV) 2021 Zoster Vaccines (1 of 2) 2021 COVID-19 Vaccine (2023-2 5 season) 2023 Meningococcal B Vaccine Aged Out No l onger eligible based on patient's age to complete this topic Meningococcal Vaccine Aged Out No paresh armani eligible based on patient's age to complete this topic RSV Immunizations Under 20 Months Aged Out No longer eligible based on patient's age to complete this topic
[2024-09-15 19:27] VITALS: BP 125/84; PULSE 90; RESP 14; TEMP 36.5; O2SAT 100
[2024-09-15 19:59] LABS: Hematocrit 44.5 % (37.0-47.0); Hemoglobin 14.9 g/dL (12.0-15.0); Immature Granulocyte Percent A 0.3 % (0-0.5); Lymphocytes Absolute Auto 2.97 K/mm3 (0.9-3.2); Mean Corpuscular HGB Conc 33.5 g/dl (32-36); Mean Corpuscular Hemoglobin 30.0 pg (26-34); Mean Corpuscular Volume 89.7 fl (80-100); Nucleated Red Blood Cells Absolute Auto 0.000 K/mm3 (0.0-0.012); Nucleated Red Blood Cells Perc 0.0 % (0.0-0.2); Platelet Count Result 252 k/mm3 (150-375); Red Blood Count 4.96 M/mm3 (4.2-5.4); White Blood Count 11.1 K/mm3 (4.5-10.0)
[2024-09-15 20:15] LABS: Alanine Aminotransferase 23 U/L (6-35); Albumin Level 4.5 g/dL (3.5-5.1); Alkaline Phosphatase 57 U/L (38-126); Anion Gap 9 mmol/L (4-12); Aspartate Amino Transferase 25 U/L (14-36); Bilirubin,Total 0.6 mg/dL (0.2-1.3); Blood Urea Nitrogen 12 mg/dL (7-17); Calcium 9.4 mg/dL (8.4-10.2); Carbon Dioxide 23 mmol/L (22-30); Chloride 103 mmol/L (98-107); Estimated Glomerular Filt Rate > 60; Glucose 98 mg/dL (65-110); Lipase 54 U/L (23-300); Potassium 4.4 mmol/L (3.4-5.0); Sodium 135 mmol/L (137-145); Total Protein 7.4 g/dL (6.3-8.2)
[2024-09-15 21:02] LABS: BEDSIDEPREGUCG Negative (Negative)
--- NOTE | 2024-09-15 21:10 | ED_ITS ---
HPI - Abdominal Pain General Chief Complaint: Abdominal Pain Stated Complaint: abd pain / left flank pain Time Seen by Provider: 09/15/24 20:47 History of Present Illness HPI narrative: Patient is a 54-year-old female who presents to the ER with left upper quadrant abdominal pain. She reports her pain started 3 days ago. Patient went to urgent care yesterday and was put on antibiotics. She denies any injury to the site. Patient endorses 1 episode of emesis earlier today. She endorses a 2 day history of nausea. Patient denies any hematuria, urinary symptoms, recent fevers. She endorses a history of kidney stones, rotator cuff surgery, and arthritis. Patient reports she still has her gallbladder, appendix, and uterus. Related Data Home Medications ?Medication ?Instructions ?Recorded ?Confirmed ?Last Taken ?Type loratadine 10 mg tablet (Claritin) 10 mg PO DAILY 12/04/23 05/21/24 Unknown History Allergies Allergy/AdvReac Type Severity Reaction Status Date / Time tramadol AdvReac Mild unknown Uncoded 09/14/24 10:56 Review of Systems 2 Review of Systems: All systems reviewed & are unremarkable except as noted in HPI and below PMFSH Past Medical History Medical History Asthma Healthy female adult Surgical History Surgical History H/O rotator cuff surgery No history of previous surgery Family History Family History Father Alcoholism Skin cancer Heart disease Hypertension Sibling Cancer Grandparent Cancer Heart disease Social History Social History Social History: 05/21/24 very confident with medical forms Smoking status: Current every day smoker Tobacco type: cigarettes Alcohol intake: never Substance use: never Do You Feel Safe in your Home?: Yes Lack of Transportation: No Current Housing: I Have Housing Concerned About Future Housing: No Difficulty Paying Gas/Electric Bills: No Difficulty Paying for Meds: No Currently Unemployed: No Education: High School Diploma/GED Difficulty w/ Childcare or Family Care: No Gender identity (if verbalized by the patient): Female Sexual Orientation (if Verbalized by the Patient): Straight or Heterosexual Spiritual care concerns: No Agree to blood products: Yes Exam 2 Narrative: GENERAL: Well appearing, well-nourished, non-toxic, in no acute distress. HEAD: Normocephalic, atraumatic. NECK: Supple. No adenopathy, no masses. RESPIRATORY: Airway patent, respirations nonlabored. Clear to auscultation bilaterally, no rales, rhonchi, wheezing. CARDIOVASCULAR: Regular rate and rhythm without murmurs, rubs, or gallops. Peripheral pulses 2+ and equal bilaterally. slight L CVA tenderness ABDOMINAL: Soft, LUQ tenderness, nondistended, no hepatosplenomegaly. Normoactive BS. MUSCULOSKELETAL: Moves all extremities. Strength/ROM intact without gross deformities. SKIN: Warm, dry, normal color. No rashes. NEURO: A&O X3. Speech clear. Cranial nerves II-XII intact. No ataxic movements. PSYCHIATRIC: Appropriate mood and affect. Normal interaction. Course Vital Signs Vital signs: Vital Signs Temperature 36.5 C 09/15/24 19:27 Pulse Rate 90 09/15/24 19:27 Respiratory Rate 14 09/15/24 19:27 Blood Pressure 125/84 09/15/24 19:27 Pulse Oximetry 100 09/15/24 19:27 Oxygen Delivery Room Air 09/15/24 19:27 Temperature 36.5 C 09/15/24 19:27 Pulse Rate 90 09/15/24 19:27 Respiratory Rate 14 09/15/24 19:27 Blood Pressure 125/84 09/15/24 19:27 Pulse Oximetry 100 09/15/24 19:27 Oxygen Delivery Room Air 09/15/24 19:27 MDM - Abdominal Pain MDM Narrative Medical decision making narrative: Patient is a 54-year-old female who presents to the ER with left upper quadrant abdominal pain. She reports her pain started 3 days ago. Patient went to urgent care yesterday and was put on antibiotics. She denies any injury to the site. Patient endorses 1 episode of emesis earlier today. She endorses a 2 day history of nausea. Patient denies any hematuria, urinary symptoms, recent fevers. She endorses a history of kidney stones, rotator cuff surgery, and arthritis. Patient reports she still has her gallbladder, appendix, and uterus. Labs Ordered: CBC, CMP, lipase, UA Imaging Ordered: CT abdomen pelvis Medications Ordered: 1 L normal saline IV bolus, 4 mg morphine IV Results: Patient's urinalysis indicates patient has urinary tract infection. Her CBC indicates a white blood cell count of 11.1. Patient's chemistry indicates a sodium of 135, creatinine of 0.66. Patient's CT scan indicates o acute pathology within the abdomen or pelvis, as detailed above. Calcified atherosclerotic disease within the infrarenal abdominal aorta, far advanced than one would expect for a patient of this age. Left paracentral disc protrusion at the level of L1/L2 with mass effect on the spinal canal and left neural foramen. Diagnosis: Urinary tract infection, left upper quadrant pain, atherosclerotic disease, lumbar radiculopathy Consults: cardiology (outpatient), neurosurgery (outpatient) Patient Education/Shared MDM: Results of lab work and imaging shared with patient. She endorses improvement of symptoms following medication administration. Patient strongly advised to maintain hydration status upon discharge and follow-up with her PCP as soon as possible. She was also advised to follow-up with cardiology regarding her atherosclerotic disease and neurosurgery regarding her lumbar radiculopathy as soon as possible. Patient denies any new onset of back pain but reports ?I have been numb from my chest to my hips since I was 26. She was already given a prescription from an outside facility for an antibiotic to treat her urinary tract infection. Patient will continue taking that medication and was strongly advised to complete the full dose. Strict return precautions provided. Patient verbalized understanding and is in agreement with plan. Vital signs stable at time of discharge. All questions answered. Differential Diagnosis Differential diagnosis: Likely abdominal pain, calculus of kidney, constipation, gastroenteritis and other (Urinary tract infection) Lab Data Attestation: I reviewed the patient's lab results. 09/15/24 19:49 09/15/24 19:49 Labs: Lab Results 09/15/24 09/15/24 09/15/24 Range/Units 19:49 20:55 20:58 WBC 11.1 H (4.5-10.0) K/mm3 RBC 4.96 (4.2-5.4) M/mm3 Hgb 14.9 (12.0-15.0) g/dL Hct 44.5 (37.0-47.0) % MCV 89.7 (80-100) fl MCH 30.0 (26-34) pg MCHC 33.5 (32-36) g/dl RDW 13.4 (11.5-14.5) % Plt Count 252 (150-375) k/mm3 MPV 10.1 (7.4-10.4) fl Immature Gran % (Auto) 0.3 (0-0.5) % Neut % (Auto) 63.8 (45.5-73.1) % Lymph % (Auto) 26.9 (18.3-44.2) % Morgan % (Auto) 5.5 (2.6-8.5) % Eos % (Auto) 3.1 (0-4.4) % Baso % (Auto) 0.4 (0.2-1.2) % Lymph # (Auto) 2.97 (0.9-3.2) K/mm3 Morgan # (Auto) 0.6 (0.1-0.6) K/mm3 Eos # (Auto) 0.3 (0-0.3) K/mm3 Baso # (Auto) 0.0 (0.0-0.1) K/mm3 Abs Immat Gran (auto) 0.03 (0.00-0.031) K/mm3 Absolute Neuts (auto) 7.1 H (1.3-6.7) K/mm3 Absolute Nucleated RBC 0.000 (0.0-0.012) K/mm3 Nucleated RBC % 0.0 (0.0-0.2) % Sodium 135 L (137-145) mmol/L Potassium 4.4 (3.4-5.0) mmol/L Chloride 103 (98-107) mmol/L Carbon Dioxide 23 (22-30) mmol/L Anion Gap 9 (4-12) mmol/L BUN 12 (7-17) mg/dL Creatinine 0.66 L (0.7-1.0) mg/dL Estim Creat Clear Calc Not Reportable Estimated GFR > 60 (59 - ) Glucose 98 (65-110) mg/dL Calcium 9.4 (8.4-10.2) mg/dL Total Bilirubin 0.6 (0.2-1.3) mg/dL AST 25 (14-36) U/L ALT 23 (6-35) U/L Alkaline Phosphatase 57 (38-126) U/L Total Protein 7.4 (6.3-8.2) g/dL Albumin 4.5 (3.5-5.1) g/dL Lipase 54 (23-300) U/L Urine Color Yellow (Yellow) Urine Appearance Clear (Clear) Urine pH 6.5 (5.0-9.0) Ur Specific [place] 1.004 (1.001-1.035) Urine Protein Negative (Negative) mg/dL Urine Glucose (UA) Negative (Negative) mg/dL Urine Ketones Negative (Negative) mg/dL Ur Blood (Man) Negative (Negative) Urine Nitrate Negative (Negative) Urine Bilirubin Negative (Negative) Urine Urobilinogen 0.2 (<2.0) mg/dL Leukocyte Esterase Rfl 3+ H (Negative) DEB/UL Urine RBC 0-2 (0-2) /hpf Urine WBC 6-10 H (0-3) /hpf Ur Squamous Epith Cells None seen (Few) /hpf Urine Bacteria None seen /hpf Urine Casts 0-2 POC Urine HCG, Qual Negative (Negative) Imaging Data Attestation: I personally reviewed and interpreted this imaging study as follows: Radiologist's impression: ITS Impressions Abdomen/Pelvis CT 09/15/24 22:17 IMPRESSION: No acute pathology within the abdomen or pelvis, as detailed above. Calcified atherosclerotic disease within the infrarenal abdominal aorta, far advanced than one would expect for a patient of this age. Left paracentral disc protrusion at the level of L1/L2 with mass effect on the spinal canal and left neural foramen. Discharge Plan Discharge Clinical Impression: Urinary tract infection, Atherosclerotic cardiovascular disease, Left upper quadrant abdominal pain Patient Disposition: Home Condition: Stable Instructions: Antibiotic Form, Abdominal Pain (ED) Additional Instructions: Please return to the ER with any worsening symptoms. Follow-up with primary care provider, Cardiology, and Neurosurgery as soon as possible. Take all medications as prescribed, including regularly scheduled medications. Complete your full dose of antibiotics. It is in your best interest to stop smoking cigarettes. Patient Language: Northern Irish Prescriptions: No Action ciprofloxacin HCl 500 mg tablet 500 mg PO Q12H 7 Days Qty: 14 0RF loratadine [Claritin] 10 mg tablet 10 mg PO DAILY meloxicam 15 mg tablet 15 mg PO DAILY Qty: 90 1RF Follow-up/Referrals: Maria E Buckner APRN [Primary Care Provider] - Xiang Lopez MD [Physician] - (cardiology) Kong Garnett MD [Physician] - (neurosurgery) Stand Alone Forms: Work/School Release IP Time of Disposition: 00:42
[2024-09-15 21:33] LABS: Glucose Urine UA Negative (Negative); Leukocyte Esterase Ur 3+ LEU/UL (Negative); Nitrate Urine Negative (Negative); Non Pathogenic Casts 0-2; Specific Grav Ur 1.004 (1.001-1.035)
[2024-09-15 21:34] LABS: Add Urine Microscopic? YES; Appearance Urine Clear (Clear)
--- OUTSIDE RECORDS SUMMARY | 2024-09-15 21:54 | XMS_ITS | Clinical Summary ---
Author Organization [facility] Address [facility] [place] [address] Care Team Providers Care Medical Reception Name Role Phone Unavailable Primary Care Provider [...]
[2024-09-15] MEDS: MORPHINE SULFATE (*CRX) 4 MG/ML INJ IV PUSH (22:05)
[2024-09-15] MEDS: SODIUM CHLORIDE 0.9% IV 1,000 ML 999 ML IV CONT (22:05)
[2024-09-15] MEDS: CEPHALEXIN 500 MG CAPSULE PO (23:56)
== END 2024-09-16 01:03 | disposition home or self-care (01) ==
PROVIDERS: Emergency Medicine; Emergency Provider Registered Nurse; PCP Nurse Practitioner Family
DX: N39.0 Urinary tract infection, site not specified (principal); I25.10 Atherosclerotic heart disease of native coronary artery without angina pectoris; R10.12 Left upper quadrant pain; J45.909 Unspecified asthma, uncomplicated; M19.90 Unspecified osteoarthritis, unspecified site; Z87.442 Personal history of urinary calculi; F17.210 Nicotine dependence, cigarettes, uncomplicated; M51.26 Other intervertebral disc displacement, lumbar region
CPT/HCPCS: 36415; 74177; 80053; 81001; 81025; 83690; 85025; 87086; 96361; 96374; 99284; A9270; J2270; J7030; Q9967